=== PATIENT | female | born 1975 | race American Indian/Alaskan Native ===

== ENCOUNTER 2020-01-13 02:20 | Observation (INO) | payer BC, OTHER ==
[2020-01-13] MEDS ORDERED: SODIUM CHLORIDE 0.9% 1000 ML 1,000 ML IV ONE ×2 (02:34→05:27)
--- NOTE | 2020-01-13 02:46 | Emergency Department Report ---
HPI - General Chief Complaint: Dyspnea/Respdistress Time Seen by Provider: 01/13/20 02:26 - HPI HPI: Room 18 The patient is a 44-year-old female present with a chief complaint of nausea and vomiting. The patient states last week she was diagnosed with a "stomach flu" in the emergency department. Approximately 7 days ago she developed shortness of breath and went to see her primary physician who diagnosed her with pneumonia after performing a chest x-ray. The patient states she was given a shot of antibiotics in the office and given a prescription for doxycycline which she has been taking. Patient states today she developed intractable nausea vomiting and body aches. Patient admits to subjective fever. Patient states she felt weak. Patient denies diarrhea. Patient admits to a cough for 1 day and rhinorrhea for 1 day. Patient currently denies shortness of breath. Patient denies dysuria or hematuria Location: [See above] Duration: [See above] Quality: [See above] Severity: [See above] Timing: [See above] Context: [See above] Modifying factors: [See above] Associated signs and symptoms: [see above] Mode of Transportation: [the pt is not driving] ED Past Medical Hx - Past Medical History Previous Medical History?: Yes Hx Hypertension: Yes Hx Diabetes: Yes Hx Asthma: Yes Additional medical history: enlarged fibroids, anemia - Surgical History Past Surgical History?: Yes Additional Surgical History: cauterized uterus - Family History Family history: no significant - Social History Smoking Status: Never Smoker Substance Use Type: None (Denies illicit drug use), Alcohol (Rarely) - Medications Home Medications: Home Medications Medication Instructions Recorded Confirmed Last Taken Type hydroCHLOROthiazide [HCTZ] 10 mg PO DAILY 12/02/14 12/02/14 12/02/14 History metFORMIN [Glucophage] 500 mg PO BID 12/02/14 12/02/14 12/02/14 History Aspirin [Aspirin BABY CHEW TAB] 81 mg PO QDAY #30 tab.chew 12/04/14 Unknown Rx Insulin Glargine [Lantus VIAL] 10 units SUB-Q QHS #3 units 12/04/14 Unknown Rx Insulin Glulisine [Apidra] 3 units SUB-Q ACHS #2 units 12/04/14 Unknown Rx Metoprolol [Lopressor TAB] 12.5 mg PO BID #60 tablet 12/04/14 Unknown Rx Rosuvastatin (Nf) [Crestor] 20 mg PO QHS #30 tablet 12/04/14 Unknown Rx lisinopriL [Zestril TAB] 10 mg PO QDAY #30 tablet 12/04/14 Unknown Rx ED Review of Systems ROS: Stated complaint: PNEUMONIA Other details as noted in HPI Constitutional: no symptoms reported Eyes: denies: eye pain ENT: denies: throat pain Respiratory: cough, shortness of breath Cardiovascular: denies: chest pain Endocrine: no symptoms reported Gastrointestinal: nausea, vomiting Genitourinary: denies: dysuria Musculoskeletal: myalgia Neurological: denies: headache Physical Exam - Physical Exam Vital Signs: Vital Signs 01/13/20 02:26 Temperature 98.8 F Pulse Rate 119 H Respiratory 21 Rate Blood Pressure 122/76 [right arm] O2 Sat by Pulse 95 Oximetry Physical Exam: GENERAL: The patient is well-developed well-nourished female lying on stretcher not appearing to be in acute distress. [] HEENT: Normocephalic. Atraumatic. Extraocular motions are intact. Patient has moist mucous membranes. NECK: Supple. Trachea midline CHEST/LUNGS: Clear to auscultation. There is no respiratory distress noted. HEART/CARDIOVASCULAR: Regular. There is no tachycardia. There is no gallop rub or murmur. ABDOMEN: Abdomen is soft, with trace discomfort to the right abdomen but no rebound or guarding. Patient has normal bowel sounds. There is no abdominal distention. SKIN: There is no rash. There is no edema. There is no diaphoresis. NEURO: The patient is awake, alert, and oriented. The patient is cooperative. The patient has normal speech MUSCULOSKELETAL: There is no evidence of acute injury. ED Course Vital Signs 01/13/20 02:26 Temperature 98.8 F Pulse Rate 119 H Respiratory 21 Rate Blood Pressure 122/76 [right arm] O2 Sat by Pulse 95 Oximetry - Consultations Consultation #1: 01/13/20 05:31 [facility] called 01/13/20 05:[address] Villareal to admit patient [facility] ED Medical Decision Making - Lab Data Result diagrams: 01/13/20 03:47 01/13/20 03:47 - Radiology Data Radiology results: report reviewed (Chest x-ray, CT chest), image reviewed (Chest x-ray, CT chest) interpreted by : Chest x-ray-no focal infiltrates, no pneumothorax Report Status: Finalized [address] [address] XRay Report Signed Patient: JET RICHARDS MR#: [id number] : 1975 Acct:[id number] Age/Sex: 44 / F ADM Date: 01/13/20 Loc: ED Attending Dr: Ordering Physician: CINDI MOORE MD Date of Service: 01/13/20 Procedure(s): XR chest routine 2V Accession Number(s): [id number] cc: CINDI MOORE MD Fluoro Time In Minutes: CHEST 2 VIEWS INDICATION / CLINICAL INFORMATION: Cough. COMPARISON: None available. FINDINGS: SUPPORT DEVICES: None. HEART / MEDIASTINUM: No significant abnormality. LUNGS / PLEURA: There are low lung volumes bilaterally. No focal infiltrate is seen.. .No pneumothorax. ADDITIONAL FINDINGS: There is mild elevation right hemidiaphragm. IMPRESSION: 1. No acute findings. Signer Name: Amor Gordon MD Signed: 01/13/2020 3:26 AM Workstation Name: [id number] Transcribed By: SS Dictated By: Amor Gordon MD Electronically Authenticated By: Amor Gordon MD Signed Date/Time: 01/13/20325 DD/ 1 TD/TT: Findings [address] [address] Cat Scan Report Signed with Addenda Patient: EDDIE HEATH MR#: [id number] : 10/20/1974 Acct:[id number] Age/Sex: 45 / M ADM Date: 01/13/20 Loc: ED Attending Dr: Ordering Physician: CINDI MOORE MD Date of Service: 01/13/20 Procedure(s): CT head/brain wo con Accession Number(s): [id number] cc: CINDI MOORE MD ADDENDUM Addendum: CRITICAL RESULT: Dr. Gordon called this report to Dr. Moore at time 0408 hours central time. Report was confirmed. Signer Name: Amor Gordon MD Signed: 01/13/2020 5:09 AM Workstation Name: [id number] Addendum Transcribed By: Addendum Dictated By: Amor Gordon MD Addendum Electronically Authenticated By: Amor Gordon MD Addendum Signed Date/Time: 01/13/20508 DD/ TD/TT: / CT HEAD WITHOUT CONTRAST INDICATION: Traumatic head injury. Mechanism unknown TECHNIQUE: Axial slices were obtained through the head. Coronal and sagittal reformatted images were obtained. COMPARISON: None available. FINDINGS: There is a small focal punctate hemorrhage in the right basal ganglia. This measures approximately 2 mm. there is no significant mass effect. No subdural or epidural or subarachnoid hemorrhage. Ventricles, basilar cisterns, and sulci appear within normal limits for age. There is no mass lesion or midline shift. No acute territorial infarct is identified. Bone windows demonstrate no acute osseous abnormality. Paranasal sinuses and mastoid air cells appear clear. TECHNIQUE: All CT scans at this facility use dose modulation, iterative reconstruction, automated exposure control, weight based dosing, when appropriate, to reduce radiation dose to as low as reasonably achievable. IMPRESSION: 1. There is a very small hemorrhagic contusion in the right basal ganglia, series 2 image 17. There is no mass effect or midline shift. Signer Name: Amor Gordon MD Signed: 01/13/2020 5:04 AM Workstation Name: [id number] Transcribed By: Dictated By: Amor Gordon MD Electronically Authenticated By: Amor Gordon MD Signed Date/Time: 01/13/20503 DD/ 9 TD/TT: [facility] [address] [place] [address] Cat Scan Report Signed Patient: JET RICHARDS MR#: [id number] : 1975 Acct:[id number] Age/Sex: 44 / F ADM Date: 01/13/20 Loc: ED Attending Dr: Ordering Physician: CINDI MOORE MD Date of Service: 01/13/20 Procedure(s): CT abdomen pelvis w con Accession Number(s): [id number] cc: CINDI MOORE MD CT abdomen pelvis w con INDICATION: MAIN: Cough, intractable nausea vomiting, leukocytosis. 100 ML OMNIPAQUE 300. TECHNIQUE: All CT scans at this location are performed using the following dose modulation technique: Automated exposure control. Helical slices were obtained through the abdomen and pelvis. 100 cc of Omnipaque 300 is administered. COMPARISON: None available. FINDINGS: Abdomen: The liver, spleen, pancreas, adrenal glands, and kidneys show no acute abnormality. There is no bowel obstruction, inflammation, or free air. The appendix is unremarkable. Pelvis: The uterus is enlarged and contains multiple masses characteristic of an enlarged leiomyomatous uterus. The uterus measures approximately 16 x 13.5 x 13.5 cm. Several of the lesions in the uterus or low in attenuation and irregular which could indicate degeneration or infarction of the fibroid. There is no air within any of these lesions to suggest infection. There is no adenopathy. There is no inflammatory change. Phleboliths are noted in the pelvis. On review of bone windows, no acute osseous abnormalities are seen. IMPRESSION: 1. There is an enlarged fibroid uterus. No inflammatory changes seen. Signer Name: Amor Gordon MD Signed: 01/13/2020 5:37 AM Workstation Name: [id number] Transcribed By: SS Dictated By: Amor Gordon MD Electronically Authenticated By: Amor Gordon MD Signed Date/Time: 01/13/20536 DD/ 0 TD/TT: - Differential Diagnosis Pneumonia, gastroenteritis, Critical care attestation.: If time is entered above; I have spent that time in minutes in the direct care of this critically ill patient, excluding procedure time. ED Disposition Clinical Impression: Nausea & vomiting, Leukocytosis, Tachycardia Disposition: OP ADMIT IP TO THIS HOSP Is pt being admited?: Yes Does the pt Need Aspirin: No Condition: Fair Referrals: PRIMARY CARE, [Primary Care Provider] - 3-5 Days Time of Disposition: 05:46 (Hospitalist paged (Dr Robin))
--- NOTE | 2020-01-13 03:30 | XRay Report ---
CHEST 2 VIEWS INDICATION / CLINICAL INFORMATION: Cough. COMPARISON: None available. FINDINGS: SUPPORT DEVICES: None. HEART / MEDIASTINUM: No significant abnormality. LUNGS / PLEURA: There are low lung volumes bilaterally. No focal infiltrate is seen.. .No pneumothora x. ADDITIONAL FINDINGS: There is mild elevation right hemidiaphragm. IMPRESSION: 1. No acute findings. Signer Name: Amor Gordon MD Signed: 01/13/2020 3:26 AM Workstation Name: [email or web address]
[2020-01-13 04:05] LABS: ABG Base Excess 3.3 mmol/L (-2.0-3.0); ABG HCO3 26.5 mmol/L (20.0-26.0); ABG Methemoglobin 0.7 % (0.0-1.5); ABG PCO2 35.7 mm Hg; ABG PH 7.488 pH Units (7.350-7.450); ABG PO2 74.3 mm Hg (80.0-90.0); VEN PH 7.488 (7.320-7.420)
[2020-01-13 04:07] LABS: Hematocrit 32.4 % (30.3-42.9); Hemoglobin 10.8 gm/dl (10.1-14.3); Mean Corpuscular HGB Conc 34 % (30-34); Mean Corpuscular Volume 88 fl (79-97); Platelet Count 520 K/mm3 (140-440); Red Blood Count 3.69 M/mm3 (3.65-5.03); Red Cell Distribution Width 15.1 % (13.2-15.2)
[2020-01-13 04:21] LABS: Alanine Aminotransferase 11 units/L (7-56); Albumin 3.1 g/dL (3.9-5); BUN/Creatinine Ratio 10; Blood Urea Nitrogen 6 mg/dL (7-17); Calcium 9.3 mg/dL (8.4-10.2); Hemolysis Index 1
[2020-01-13 05:11] LABS: Basophils % (Manual) 0 % (0.0-1.8); Eosinophils % (Manual) 0 % (0.0-4.3)
[2020-01-13 05:13] LABS: Anisocytosis 1+; Platelet Estimate Consistent w Auto; Total Cells Counted 200
[2020-01-13] MEDS ORDERED: PIPERACIL/TAZOBACTA 4.5/NS 100 4.5 GM/100 ML VIAL IV ONE (05:27)
--- NOTE | 2020-01-13 05:36 | Cat Scan Report ---
CT chest w con INDICATION: Cough, intractable nausea vomiting, leukocytosis. TECHNIQUE: All CT scans at this location are performed using the following dose modulation technique: Automated exposure control. Helical slices were obtained through the chest. 100 cc of Omnipaque 300 is administ ered. COMPARISON: None available. FINDINGS: There is mild dependent atelectasis in the lung bases. No significant infiltrate is seen. There is no pneumothorax. Review of the mediastinum there is no adenopathy. The heart size is normal. The thoracic aorta is nor mal in diameter. There is a small hiatal hernia. On review of bone windows, no acute osseous abnormalities are seen. IMPRESSION: 1. There is mild dependent atelectasis. No significant infiltrate is seen. There is no pneumothorax. Signer Name: Amor Gordon MD Signed: 01/13/2020 5:31 AM Workstation Name: [id number]
--- NOTE | 2020-01-13 05:42 | Cat Scan Report ---
CT abdomen pelvis w con INDICATION: MAIN: Cough, intractable nausea vomiting, leukocytosis. 100 ML OMNIPAQUE 300. TECHNIQUE: All CT scans at this location are performed using the following dose modulation technique: Automated exposure control. Helical slices were obtained through the abdomen and pelvis. 100 cc of Omnipaque 30 0 is administered. COMPARISON: None available. FINDINGS: Abdomen: The liver, spleen, pancreas, adrenal glands, and kidneys show no acute abnormality. There is no bowel obstruction, inflammation, or free air. The appendix is unremarkable. Pelvis: The uterus is enlarged and contains multiple masses characteristic of an enlarged leiomyomato us uterus. The uterus measures approximately 16 x 13.5 x 13.5 cm. Several of the lesions in the uteru s or low in attenuation and irregular which could indicate degeneration or infarction of the fibroid. There is no air within any of these lesions to suggest infection. There is no adenopathy. There is n o inflammatory change. Phleboliths are noted in the pelvis. On review of bone windows, no acute osseous abnormalities are seen. IMPRESSION: 1. There is an enlarged fibroid uterus. No inflammatory changes seen. Signer Name: Amor Gordon MD Signed: 01/13/2020 5:37 AM Workstation Name: [id number]
--- NOTE | 2020-01-13 05:59 | History and Physical Report ---
History of Present Illness Date of examination: 01/13/20 Date of admission: 01/13/20 Chief complaint: Nausea, vomiting History of present illness: Patient is a 44-year-old female with diabetes, anemia, hypertension and obesity who presents to ER with complaints of nausea and vomiting since last p.m. patient reports she is currently taking doxycycline and Zofran after being diagnosed with pneumonia by her her PCP last week. She reports compliance with medication and states vomiting has been persistent with Zofran. Patient states worsening symptoms over the last couple hours accompanied by fevers and chills Patient transported to [facility] via EMS. Patient seen and evaluated in the emergency department. Patient found to have leukocytosis as well as concomitant abdominal pain. Patient placed in observation status and admitted for further evaluation. Past History Past Medical History: other (as noted in hpi) Past Surgical History: Other (Fibroids, polyps) Social history: no significant social history Family history: CAD, diabetes Medications and Allergies Allergies Allergy/AdvReac Type Severity Reaction Status Date / Time No Known Allergies Allergy Verified 12/03/14 00:56 Home Medications Medication Instructions Recorded Confirmed Last Taken Type hydroCHLOROthiazide [HCTZ] 10 mg PO DAILY 12/02/14 12/02/14 12/02/14 History metFORMIN [Glucophage] 500 mg PO BID 12/02/14 12/02/14 12/02/14 History Aspirin [Aspirin BABY CHEW TAB] 81 mg PO QDAY #30 tab.chew 12/04/14 Unknown Rx Insulin Glargine [Lantus VIAL] 10 units SUB-Q QHS #3 units 12/04/14 Unknown Rx Insulin Glulisine [Apidra] 3 units SUB-Q ACHS #2 units 12/04/14 Unknown Rx Metoprolol [Lopressor TAB] 12.5 mg PO BID #60 tablet 12/04/14 Unknown Rx Rosuvastatin (Nf) [Crestor] 20 mg PO QHS #30 tablet 12/04/14 Unknown Rx lisinopriL [Zestril TAB] 10 mg PO QDAY #30 tablet 12/04/14 Unknown Rx Active Meds: Active Medications Sodium Chloride (Nacl 0.9% 1000 Ml) 1,000 mls @ 999 mls/hr IV ONCE ONE Stop: 01/13/20 06:27 Last Admin: 01/13/20 05:50 Dose: 999 mls/hr Documented by: Review of Systems All systems: negative Constitutional: fever, chills, weakness Respiratory: respiratory infections Gastrointestinal: nausea, vomiting, no abdominal pain, no diarrhea, no constipation Exam - Physical Exam Narrative exam: - Physical Exam Narrative exam: General appearance: Present: No distress noted - EENT Eyes: Present: PERRL ENT: hearing intact, dry oral mucosa - Neck Neck: Present: supple, normal ROM - Respiratory Respiratory effort: normal Respiratory: bilateral: Clear to auscultation - Cardiovascular Heart rate:109 Heart Sounds: Present: S1 & S2. Absent: rub, click - Extremities Extremities: pulses symmetrical, No edema Peripheral Pulses: within normal limits - Abdominal General gastrointestinal: Present: , non-distended, normal bowel sounds genitourinary: Present: normal - Integumentary Integumentary: Present: clear, warm, dry - Musculoskeletal Musculoskeletal: gait normal, strength equal bilaterally - Psychiatric Psychiatric: appropriate mood/affect, intact judgment & insight - Neurologic Neurologic: CNII-XII intact, moves all extremities - Constitutional Vitals: Temp Pulse Resp BP Pulse Ox 98.8 F 57 L 38 H 113/68 97 01/13/20 02:26 01/13/20 04:30 01/13/20 04:30 01/13/20 04:30 01/13/20 04:30 ADDISON score - Addison Score Age > 65: (0) No Aspirin use within the Past 7 Days: (0) No 3 or more CAD Risk Factors: (1) Yes 2 or more Angina events in past 24 hrs: (1) Yes Known CAD with more than 50% Stenosis: (0) No Elevated Cardiac Markers: (0) No ST Deviation Greater than 0.5mm: (0) No ADDISON Score: 2 Results - Labs CBC & Chem 7: 01/13/20 03:47 01/13/20 03:47 Labs: Laboratory Last Values WBC 25.1 K/mm3 (4.5-11.0) H 01/13/20 03:47 RBC 3.69 M/mm3 (3.65-5.03) 01/13/20 03:47 Hgb 10.8 gm/dl (10.1-14.3) 01/13/20 03:47 Hct 32.4 % (30.3-42.9) 01/13/20 03:47 MCV 88 fl (79-97) 01/13/20 03:47 MCH 29 pg (28-32) 01/13/20 03:47 MCHC 34 % (30-34) 01/13/20 03:47 RDW 15.1 % (13.2-15.2) 01/13/20 03:47 Plt Count 520 K/mm3 (140-440) H 01/13/20 03:47 Add Manual Diff Complete 01/13/20 03:47 Total Counted 200 01/13/20 03:47 Seg Neutrophils % [employer] 01/13/20 03:47 Seg Neuts % (Manual) 94.0 % (40.0-70.0) H 01/13/20 03:47 Band Neutrophils % 0 % 01/13/20 03:47 Lymphocytes % (Manual) 4.0 % (13.4-35.0) L 01/13/20 03:47 Reactive Lymphs % (Man) 0 % 01/13/20 03:47 Monocytes % (Manual) 2.0 % (0.0-7.3) 01/13/20 03:47 Eosinophils % (Manual) 0 % (0.0-4.3) 01/13/20 03:47 Basophils % (Manual) 0 % (0.0-1.8) 01/13/20 03:47 Metamyelocytes % 0 % 01/13/20 03:47 Myelocytes % 0 % 01/13/20 03:47 Promyelocytes % 0 % 01/13/20 03:47 Blast Cells % 0 % 01/13/20 03:47 Nucleated RBC % Not Reportable 01/13/20 03:47 Seg Neutrophils # Man 23.6 K/mm3 (1.8-7.7) H 01/13/20 03:47 Band Neutrophils # 0.0 K/mm3 01/13/20 03:47 Lymphocytes # (Manual) 1.0 K/mm3 (1.2-5.4) L 01/13/20 03:47 Abs React Lymphs (Man) 0.0 K/mm3 01/13/20 03:47 Monocytes # (Manual) 0.5 K/mm3 (0.0-0.8) 01/13/20 03:47 Eosinophils # (Manual) 0.0 K/mm3 (0.0-0.4) 01/13/20 03:47 Basophils # (Manual) 0.0 K/mm3 (0.0-0.1) 01/13/20 03:47 Metamyelocytes # 0.0 K/mm3 01/13/20 03:47 Myelocytes # 0.0 K/mm3 01/13/20 03:47 Promyelocytes # 0.0 K/mm3 01/13/20 03:47 Blast Cells # 0.0 K/mm3 01/13/20 03:47 WBC Morphology Not Reportable 01/13/20 03:47 Hypersegmented Neuts Not Reportable 01/13/20 03:47 Hyposegmented Neuts Not Reportable 01/13/20 03:47 Hypogranular Neuts Not Reportable 01/13/20 03:47 Smudge Cells Not Reportable 01/13/20 03:47 Toxic Granulation Not Reportable 01/13/20 03:47 Toxic Vacuolation Not Reportable 01/13/20 03:47 Dohle Bodies Not Reportable 01/13/20 03:47 Pelger-Huet Anomaly Not Reportable 01/13/20 03:47 Rolando Rods Not Reportable 01/13/20 03:47 Platelet Estimate Consistent w auto 01/13/20 03:47 Clumped Platelets Not Reportable 01/13/20 03:47 Plt Clumps, EDTA Not Reportable 01/13/20 03:47 Large Platelets Not Reportable 01/13/20 03:47 Giant Platelets Not Reportable 01/13/20 03:47 Platelet Satelliting Not Reportable 01/13/20 03:47 Plt Morphology Comment Not Reportable 01/13/20 03:47 RBC Morphology Not Reportable 01/13/20 03:47 Dimorphic RBCs Not Reportable 01/13/20 03:47 Polychromasia Not Reportable 01/13/20 03:47 Hypochromasia Not Reportable 01/13/20 03:47 Poikilocytosis Not Reportable 01/13/20 03:47 Anisocytosis 1+ 01/13/20 03:47 Microcytosis Not Reportable 01/13/20 03:47 Macrocytosis Not Reportable 01/13/20 03:47 Spherocytes Not Reportable 01/13/20 03:47 Pappenheimer Bodies Not Reportable 01/13/20 03:47 Sickle Cells Not Reportable 01/13/20 03:47 Target Cells Not Reportable 01/13/20 03:47 Tear Drop Cells Not Reportable 01/13/20 03:47 Ovalocytes Not Reportable 01/13/20 03:47 Helmet Cells Not Reportable 01/13/20 03:47 [place] Bodies Not Reportable 01/13/20 03:47 [place] Rings Not Reportable 01/13/20 03:47 Kirt Cells Not Reportable 01/13/20 03:47 Bite Cells Not Reportable 01/13/20 03:47 Crenated Cell Not Reportable 01/13/20 03:47 Elliptocytes Not Reportable 01/13/20 03:47 Acanthocytes (Spur) Not Reportable 01/13/20 03:47 Rouleaux Not Reportable 01/13/20 03:47 Hemoglobin C Crystals Not Reportable 01/13/20 03:47 Schistocytes Not Reportable 01/13/20 03:47 Malaria parasites Not Reportable 01/13/20 03:47 Hernando Bodies Not Reportable 01/13/20 03:47 Hem Pathologist Commnt No 01/13/20 03:47 ABG pH 7.488 pH Units (7.350-7.450) H 01/13/20 03:47 ABG pCO2 35.7 mm Hg 01/13/20 03:47 ABG pO2 74.3 mm Hg (80.0-90.0) L 01/13/20 03:47 ABG HCO3 26.5 mmol/L (20.0-26.0) H 01/13/20 03:47 ABG O2 Saturation 96.0 % (95.0-99.0) 01/13/20 03:47 ABG O2 Content 17.1 (0.0-44) 01/13/20 03:47 ABG Base Excess 3.3 mmol/L (-2.0-3.0) H 01/13/20 03:47 ABG Hemoglobin 12.9 gm/dl (12.0-16.0) 01/13/20 03:47 ABG Carboxyhemoglobin 1.4 % (0.0-5.0) 01/13/20 03:47 ABG Methemoglobin 0.7 % (0.0-1.5) 01/13/20 03:47 VBG pH 7.488 (7.320-7.420) H 01/13/20 03:47 Oxyhemoglobin 94.0 % (95.0-99.0) L 01/13/20 03:47 FiO2 21 % 01/13/20 03:47 Sodium 137 mmol/L (137-145) 01/13/20 03:47 Potassium 3.2 mmol/L (3.6-5.0) L 01/13/20 03:47 Chloride 95.6 mmol/L (98-107) L 01/13/20 03:47 Carbon Dioxide 26 mmol/L (22-30) 01/13/20 03:47 Anion Gap 19 mmol/L 01/13/20 03:47 BUN 6 mg/dL (7-17) L 01/13/20 03:47 Creatinine 0.6 mg/dL (0.7-1.2) L 01/13/20 03:47 Estimated GFR > 60 ml/min 01/13/20 03:47 BUN/Creatinine Ratio 10 % 01/13/20 03:47 Glucose 244 mg/dL (65-100) H 01/13/20 03:47 Calcium 9.3 mg/dL (8.4-10.2) 01/13/20 03:47 Total Bilirubin 0.40 mg/dL (0.1-1.2) 01/13/20 03:47 AST 12 units/L (5-40) 01/13/20 03:47 ALT 11 units/L (7-56) 01/13/20 03:47 Alkaline Phosphatase 91 units/L (35-129) 01/13/20 03:47 Total Protein 5.9 g/dL (6.3-8.2) L 01/13/20 03:47 Albumin 3.1 g/dL (3.9-5) L 01/13/20 03:47 Albumin/Globulin Ratio 1.1 % 01/13/20 03:47 Lipase 9 units/L (13-60) L 01/13/20 03:47 Influenza A (Rapid) Negative (Negative) 01/13/20 02:45 Influenza B (Rapid) Negative (Negative) 01/13/20 02:45 - Imaging and Cardiology Chest x-ray: report reviewed CT scan - abdomen: report reviewed CT scan - chest: report reviewed Imaging and Cardiology: CT chest w con INDICATION: Cough, intractable nausea vomiting, leukocytosis. TECHNIQUE: All CT scans at this location are performed using the following dose modulation technique: Automated exposure control. Helical slices were obtained through the chest. 100 cc of Omnipaque 300 is administered. COMPARISON: None available. FINDINGS: There is mild dependent atelectasis in the lung bases. No significant infiltrate is seen. There is no pneumothorax. Review of the mediastinum there is no adenopathy. The heart size is normal. The thoracic aorta is normal in diameter. There is a small hiatal hernia. On review of bone windows, no acute osseous abnormalities are seen. IMPRESSION: 1. There is mild dependent atelectasis. No significant infiltrate is seen. There is no pneumothorax. CHEST 2 VIEWS INDICATION / CLINICAL INFORMATION: Cough. COMPARISON: None available. FINDINGS: SUPPORT DEVICES: None. HEART / MEDIASTINUM: No significant abnormality. LUNGS / PLEURA: There are low lung volumes bilaterally. No focal infiltrate is seen.. .No pneumothorax. ADDITIONAL FINDINGS: There is mild elevation right hemidiaphragm. IMPRESSION: 1. No acute findings. CT abdomen pelvis w con INDICATION: MAIN: Cough, intractable nausea vomiting, leukocytosis. 100 ML OMNIPAQUE 300. TECHNIQUE: All CT scans at this location are performed using the following dose modulation technique: Automated exposure control. Helical slices were obtained through the abdomen and pelvis. 100 cc of Omnipaque 300 is administered. COMPARISON: None available. FINDINGS: Abdomen: The liver, spleen, pancreas, adrenal glands, and kidneys show no acute abnormality. There is no bowel obstruction, inflammation, or free air. The appendix is unremarkable. Pelvis: The uterus is enlarged and contains multiple masses characteristic of an enlarged leiomyomatous uterus. The uterus measures approximately 16 x 13.5 x 13.5 cm. Several of the lesions in the uterus or low in attenuation and irregular which could indicate degeneration or in farction of the fibroid. There is no air within any of these lesions to suggest infection. There is no adenopathy. There is no inflammatory change. Phleboliths are noted in the pelvis. On review of bone windows, no acute osseous abnormalities are seen. IMPRESSION: 1. There is an enlarged fibroid uterus. No inflammatory changes seen. Assessment and Plan Assessment and plan: SIRS -CXR no infiltrates -Tachycardic with heart rate 120 bpm -Respiratory rate >30 -Blood cultures pending -Negative Rapid influenza A and influenza B -Follow up on labs -Continue supportive care Leukocytosis -Likely inflammatory response, denies recent systemic steroid use -WBC on admission 25 -Afebrile -Cultures pending -UA pending -Antibiotic started in the ER -Continue to monitor labs Intractable nausea vomiting -ivf -cont antiemetics Tachycardia -possibly r/t above -Monitor DM -POC BG monitoring -SSI coverage prn Advance Directives: No VTE prophylaxis?: Mechanical Plan of care discussed with patient/family: Yes
[2020-01-13] MEDS ORDERED: DEXTROSE 50% IN WATER (25GM) 50 ML SYRINGE IV PRN (06:00)
[2020-01-13] MEDS ORDERED: ONDANSETRON 4 MG/2 ML INJ IV PRN (06:00)
[2020-01-13] MEDS ORDERED: ACETAMINOPHEN 325 MG TAB PO PRN (06:00)
[2020-01-13] MEDS: INSULIN LISPRO 100 UNIT/ML SUB-Q SCH ×4 (09:05→22:21)
[2020-01-13] MEDS ORDERED: INSULIN LISPRO 100 UNIT/ML SUB-Q ONE (09:05)
[2020-01-13] MEDS: FAMOTIDINE 20 MG/2 ML INJ IV SCH ×2 (10:06→22:20)
[2020-01-13] MEDS ORDERED: PIPERACIL/TAZOBACTA 4.5/NS 100 4.5 GM/100 ML VIAL IV SCH (14:00)
--- NOTE | 2020-01-13 17:04 | Consultation ---
History of Present Illness Consult date: 01/13/20 Requesting physician: HENRY LANCE Reason for consult: dyspnea History of present illness: Patient is a 44-year-old female with diabetes, anemia, hypertension and obesity who presents to ER with complaints of nausea and vomiting since last p.m. patient reports she is currently taking doxycycline and Zofran after being diagnosed with pneumonia by her her PCP last week. She reports compliance with medication and states vomiting has been persistent with Zofran. Patient states worsening symptoms over the last couple hours accompanied by fevers and chills Patient transported to [facility] via EMS. Patient seen and evaluated in the emergency department. Patient found to have leukocytosis as well as concomitant abdominal pain. Patient placed in observation status and admitted for further evaluation. I have been consulted for dyspnea and pneumonia Thank you. Patient was seen and examined. Vitals, labs, medications, chart and imaging were reviewed. She states that she is short of breath and was on a 10 day course of doxycycline for pneumonia. The diagnosis of pneumonia was clinical without supporting radi ographic findings. She does have a history of mild intermittent asthma. She is resting in bed, states her nausea is slowly getting better. She is on 2L of regular flow oxygen and in no respiratory distress. Past History Past Medical History: other (as noted in hpi) Past Surgical History: Other (Fibroids, polyps) Social history: no significant social history Family history: CAD, diabetes Medications and Allergies Allergies Allergy/AdvReac Type Severity Reaction Status Date / Time No Known Allergies Allergy Verified 12/03/14 00:56 Home Medications Medication Instructions Recorded Confirmed Last Taken Type hydroCHLOROthiazide [HCTZ] 12.5 mg PO DAILY 12/02/14 01/13/20 01/12/20 History metFORMIN [Glucophage] 1,000 mg PO BID 12/02/14 01/13/20 01/12/20 History Albuterol INH(or & Nicu Only) 1 puff IH Q4HR PRN 01/13/20 01/13/20 Unknown History [ProAir HFA Inhaler] Insulin Glargine [Lantus VIAL] 45 units SUB-Q QHS 01/13/20 01/13/20 01/13/20 History Loratadine [Alavert] 10 mg PO QDAY 01/13/20 01/13/20 Unknown History Metoprolol [Lopressor TAB] 100 mg PO QDAY 01/13/20 01/13/20 01/12/20 History Montelukast [Singulair] 10 mg PO QPM 01/13/20 01/13/20 01/12/20 History glipiZIDE [Glucotrol] 10 mg PO QDAY 01/13/20 01/13/20 01/12/20 History Active Meds: Active Medications Acetaminophen (Tylenol) 650 mg PO Q4H PRN PRN Reason: Pain MILD(1-3)/Fever >100.5/RYAN Dextrose (D50w (25gm) Syringe) 50 ml IV Q30MIN PRN; Protocol PRN Reason: Hypoglycemia Famotidine (Pepcid) 20 mg IV BID JASPREET Last Admin: 01/13/20 10:06 Dose: 20 mg Documented by: Sodium Chloride (Nacl 0.9% 1000 Ml) 1,000 mls @ 125 mls/hr IV DIRECT JASPREET Insulin Human Lispro (Humalog) 0 unit SUB-Q ACHS JASPREET; Protocol Last Admin: 01/13/20 13:03 Dose: Not Given Documented by: Ondansetron HCl (Zofran) 4 mg IV Q8H PRN PRN Reason: Nausea And Vomiting Review of Systems Constitutional: chills, no weight loss, no weight gain, no fever Ears, nose, mouth and throat: no ear pain, no ear discharge, no decreased hearing, no nasal congestion, no nasal discharge Cardiovascular: shortness of breath, no chest pain, no dyspnea on exertion, no paroxysmal nocturnal dyspnea, no leg edema Respiratory: cough, shortness of breath, congestion, no excessive sputum, no hemoptysis, no wheezing Gastrointestinal: abdominal pain, nausea, vomiting, no diarrhea, no constipation, no change in bowel habits Musculoskeletal: no neck stiffness, no neck pain, no shooting arm pain, no arm numbness/tingling Neurological: no transient paralysis, no parathesias, no seizures, no syncope, no tremors, no ataxia, no lack of coordination Physical Examination Vital signs: Vital Signs Temp Pulse Resp BP Pulse Ox 98.8 F 119 H 21 122/76 95 01/13/20 02:26 01/13/20 02:26 01/13/20 02:26 01/13/20 02:26 01/13/20 02:26 General appearance: no acute distress, appears uncomfortable, other (on suppleme ntal oxygen at 2L/min) Eyes: non-icteric ENT: oropharynx moist Neck: supple, no lymphadenopathy, no JVD Effort: normal Ascultation: Bilateral: diminished breath sounds, rhonchi Cardiovascular: regular rate and rhythm, other (S1,S2) Gastrointestinal: normoactive bowel sounds, soft, non-tender Integumentary: normal Extremities: no cyanosis, no edema, pink and warm, no ischemia or petechiae Musculoskeletal: no deformities normal mental status, non-focal exam, pupils equal and round, CN II-XII normal, motor strength normal and mood appropriate, anxious Results - Laboratory Findings CBC and BMP: 01/14/20 05:39 01/14/20 05:39 ABG ABG pH 7.488 pH Units (7.350-7.450) H 01/13/20 03:47 ABG pCO2 35.7 mm Hg 01/13/20 03:47 ABG pO2 74.3 mm Hg (80.0-90.0) L 01/13/20 03:47 ABG O2 Saturation 96.0 % (95.0-99.0) 01/13/20 03:47 Abnormal lab findings: Abnormal Labs 01/13/20 01/13/20 01/13/20 03:47 03:47 03:47 WBC 25.1 H Plt Count 520 H Seg Neuts % (Manual) 94.0 H Lymphocytes % (Manual) 4.0 L Seg Neutrophils # Man 23.6 H Lymphocytes # (Manual) 1.0 L ABG pH 7.488 H ABG pO2 74.3 L ABG HCO3 26.5 H ABG Base Excess 3.3 H VBG pH 7.488 H Oxyhemoglobin 94.0 L Potassium 3.2 L Chloride 95.6 L BUN 6 L Creatinine 0.6 L Glucose 244 H POC Glucose Total Protein 5.9 L Albumin 3.1 L Lipase 9 L 01/13/20 01/13/20 08:56 12:09 WBC Plt Count Seg Neuts % (Manual) Lymphocytes % (Manual) Seg Neutrophils # Man Lymphocytes # (Manual) ABG pH ABG pO2 ABG HCO3 ABG Base Excess VBG pH Oxyhemoglobin Potassium Chloride BUN Creatinine Glucose POC Glucose 225 H 164 H Total Protein Albumin Lipase - Diagnostic Findings Chest x-ray: image reviewed (Low lung volumes, elevation of right hemidiaphragm) CT scan - chest: image reviewed (Bilateral lower lobe atelectasis, mild) Assessment and Plan Dyspnea Bilateral lower lobe atelectasis h/o Mild intermittent asthma SIRS-Leukocytosis Nausea -vomiting Tachycardia DM -Wean supplemental oxygen for O2 sats>90% -Bronchodilators -Her CT chest and CXR are unremarkable fro a primary pulmonary process. With the elevated right hemidiaphragm, with nausea/vomiting and abdominal pain in an obese woman will r/o acute cholecystitis. she did come in with leukocytosis and an acute inflammatory response picture -VTE prophylaxis -Gentle IV hydration -Accucheck with glycemic control -Anti-emetics with supportive care -Weight loss and life style modification on discharge -Airway clearance techniques- incentive spirometry Thank you for the consult. Please call with any questions or concerns
[2020-01-13] MEDS: SODIUM CHLORIDE 0.9% 1000 ML 1,000 ML IV SCH (17:42)
[2020-01-13] MEDS ORDERED: ALBUTEROL 8.5 GM INHALATION IH PRN (17:49)
[2020-01-13 18:58] LABS: HCG Qualitative,Urine Negative (Negative)
[2020-01-13 18:59] LABS: Bilirubin,Urine NEG (Negative); Blood,Urine MOD (Negative); Color,Urine Yellow (Yellow); Protein,Urine <15 mg/dL mg/dL (Negative); Urobilinogen,Urine < 2.0 mg/dL (<2.0)
[2020-01-13] MEDS: BUDESONIDE 0.5 MG/2 ML NEBU IH SCH (19:28)
[2020-01-13] MEDS: MONTELUKAST 10 MG TAB PO SCH (19:45)
[2020-01-13] MEDS ORDERED: INSULIN GLARGINE 100 UNITS/ML SUB-Q SCH (22:00)
[2020-01-13] MEDS: metFORMIN 500 MG TAB PO SCH (22:18)
[2020-01-13] MEDS: METOPROLOL TARTRATE 50 MG TAB PO SCH (22:19)
[2020-01-13] MEDS: INSULIN GLARGINE 100 UNITS/ML SUB-Q SCH (22:20)
[2020-01-14] MEDS: SODIUM CHLORIDE 0.9% 1000 ML 1,000 ML IV SCH ×2 (01:27→11:59)
[2020-01-14 07:03] LABS: Basophils % (Auto) 0.3 % (0.0-1.8); Eosinophils % (Auto) 0.2 % (0.0-4.3); Hemoglobin 10.2 gm/dl (10.1-14.3); Lymphocytes # (Auto) 1.6 K/mm3 (1.2-5.4); Lymphocytes % (Auto) 11.1 % (13.4-35.0); Mean Corpuscular HGB Conc 33 % (30-34); Mean Corpuscular Volume 89 fl (79-97); Monocytes # (Auto) 0.9 K/mm3 (0.0-0.8); Monocytes % (Auto) 6.6 % (0.0-7.3); Platelet Count 489 K/mm3 (140-440); Red Blood Count 3.48 M/mm3 (3.65-5.03); Red Cell Distribution Width 14.9 % (13.2-15.2)
[2020-01-14 07:09] LABS: BUN/Creatinine Ratio 8; Blood Urea Nitrogen 4 mg/dL (7-17); Calcium 8.6 mg/dL (8.4-10.2); Hemolysis Index 0
[2020-01-14] MEDS: BUDESONIDE 0.5 MG/2 ML NEBU IH SCH ×2 (07:24→20:44)
[2020-01-14] MEDS: ALBUTEROL 2.5 MG/3 ML NEBU IH PRN (07:24)
[2020-01-14] MEDS: INSULIN LISPRO 100 UNIT/ML SUB-Q SCH ×5 (07:30→22:11)
--- NOTE | 2020-01-14 08:21 | Progress Note ---
Assessment and Plan Dyspnea Bilateral lower lobe atelectasis h/o Mild intermittent asthma SIRS-Leukocytosis Nausea -vomiting Tachycardia DM -Wean supplemental oxygen for O2 sats>90% -Bronchodilators -Her CT chest and CXR are unremarkable fro a primary pulmonary process. With the elevated right hemidiaphragm, with nausea/vomiting and abdominal pain in an obese woman will r/o acute cholecystitis. she did come in with leukocytosis and an acute inflammatory response picture -VTE prophylaxis -Gentle IV hydration -Accucheck with glycemic control -Anti-emetics with supportive care -Weight loss and life style modification on discharge -Airway clearance techniques- incentive spirometry Thank you for the consult. Please call with any questions or concerns Subjective Date of service: 01/14/20 Objective Vital Signs - 12hr 01/13/20 01/13/20 01/14/20 22:19 23:42 03:48 Temperature 98.0 F Pulse Rate 109 H 99 H 100 H Respiratory 18 Rate Blood Pressure 127/80 105/64 O2 Sat by Pulse 96 Oximetry 01/14/20 04:27 Temperature 98.0 F Pulse Rate 100 H Respiratory 18 Rate Blood Pressure 106/59 O2 Sat by Pulse 97 Oximetry Constitutional: no acute distress, appears uncomfortable, other (on supplemental oxygen at 2L/min) Eyes: non-icteric ENT: oropharynx moist Neck: supple, no lymphadenopathy, no JVD Effort: normal Ascultation: Bilateral: diminished breath sounds, rhonchi Cardiovascular: regular rate and rhythm, other (S1,S2) Gastrointestinal: normoactive bowel sounds, soft, non-tender Integumentary: normal Extremities: no cyanosis, no edema, pink and warm, no ischemia or petechiae Neurologic: normal mental status, non-focal exam, pupils equal and round, CN II- XII normal, motor strength normal and Psychiatric: mood appropriate, anxious CBC and BMP: 01/14/20 05:39 01/14/20 05:39 ABG, PT/INR, D-dimer: ABG ABG pH 7.488 pH Units (7.350-7.450) H 01/13/20 03:47 ABG pCO2 35.7 mm Hg 01/13/20 03:47 ABG pO2 74.3 mm Hg (80.0-90.0) L 01/13/20 03:47 ABG O2 Saturation 96.0 % (95.0-99.0) 01/13/20 03:47 Abnormal lab findings: Abnormal Labs 01/13/20 01/13/20 01/13/20 03:47 03:47 03:47 WBC 25.1 H RBC Plt Count 520 H Lymph % (Auto) [place] # Seg Neutrophils % Seg Neuts % (Manual) 94.0 H Lymphocytes % (Manual) 4.0 L Seg Neutrophils # Seg Neutrophils # Man 23.6 H Lymphocytes # (Manual) 1.0 L ABG pH 7.488 H ABG pO2 74.3 L ABG HCO3 26.5 H ABG Base Excess 3.3 H VBG pH 7.488 H Oxyhemoglobin 94.0 L Potassium 3.2 L Chloride 95.6 L BUN 6 L Creatinine 0.6 L Glucose 244 H POC Glucose Phosphorus Magnesium Total Protein 5.9 L Albumin 3.1 L Lipase 9 L 01/13/20 01/13/20 01/13/20 08:56 12:09 17:17 WBC RBC Plt Count Lymph % (Auto) [place] # Seg Neutrophils % Seg Neuts % (Manual) Lymphocytes % (Manual) Seg Neutrophils # Seg Neutrophils # Man Lymphocytes # (Manual) ABG pH ABG pO2 ABG HCO3 ABG Base Excess VBG pH Oxyhemoglobin Potassium Chloride BUN Creatinine Glucose POC Glucose 225 H 164 H 301 H Phosphorus Magnesium Total Protein Albumin Lipase 01/13/20 01/14/20 01/14/20 20:49 05:39 05:39 WBC 14.3 H RBC 3.48 L Plt Count 489 H Lymph % (Auto) 11.1 L [place] # 0.9 H Seg Neutrophils % 81.8 H Seg Neuts % (Manual) Lymphocytes % (Manual) Seg Neutrophils # 11.7 H Seg Neutrophils # Man Lymphocytes # (Manual) ABG pH ABG pO2 ABG HCO3 ABG Base Excess VBG pH Oxyhemoglobin Potassium 3.3 L Chloride BUN 4 L Creatinine 0.5 L Glucose 168 H POC Glucose 325 H Phosphorus 2.30 L Magnesium 1.50 L Total Protein Albumin Lipase 01/14/20 07:34 WBC RBC Plt Count Lymph % (Auto) [place] # Seg Neutrophils % Seg Neuts % (Manual) Lymphocytes % (Manual) Seg Neutrophils # Seg Neutrophils # Man Lymphocytes # (Manual) ABG pH ABG pO2 ABG HCO3 ABG Base Excess VBG pH Oxyhemoglobin Potassium Chloride BUN Creatinine Glucose POC Glucose 135 H Phosphorus Magnesium Total Protein Albumin Lipase
[2020-01-14] MEDS ORDERED: hydroCHLOROthiazide 12.5 MG CAP PO SCH (10:00)
[2020-01-14] MEDS ORDERED: LORATADINE 10 MG PO SCH (10:00)
[2020-01-14] MEDS ORDERED: METOPROLOL TARTRATE 25 MG TAB PO SCH (10:00)
[2020-01-14] MEDS ORDERED: MAGNESIUM SULFATE 2 GM/50 ML BAG IV SCH (12:00)
[2020-01-14] MEDS: CETIRIZINE 10 MG TAB PO SCH (12:04)
[2020-01-14] MEDS: FAMOTIDINE 20 MG/2 ML INJ IV SCH ×2 (12:04→22:13)
[2020-01-14] MEDS: metFORMIN 500 MG TAB PO SCH ×2 (12:04→22:12)
[2020-01-14] MEDS: METOPROLOL TARTRATE 50 MG TAB PO SCH ×2 (12:05→22:12)
[2020-01-14] MEDS ORDERED: POTASSIUM PHOSPHATE 30 MMOL in SODIUM CHLORIDE 0.9% 500 ML 500 ML IV ONE (12:30)
--- NOTE | 2020-01-14 13:41 | Discharge Summary ---
Providers - Providers Date of Admission: 01/13/20 05:52 Attending physician: HENRY LANCE MD 01/13/20 13:02 Consult to Physician [CONS] Routine Comment: Consulting Provider: AVNI BERRIOS Physician Instructions: Reason For Exam: sob Primary care physician: [employer] Hospitalization Condition: Good Hospital course: 44-year-old male who presented to the hospital with viral type symptoms. Which included generalized weakness, muscle aches, cough which was nonproductive. Low-grade subjective fevers at home. The patient had extensive work-up in the hospital which included UA urine culture blood culture chest x-ray and rapid influenza. All were negative, the patient was found to be dehydrated, she received IV fluids and her electrolytes were repleted. Insulins are optimized Patient was reassured, preventative health counseling performed for 17 minutes. She was treated for vaginal candidiasis with antifungals Diagnosis Sepsis Upper respiratory tract infection likely due to viral illness Hypokalemia Hypomagnesemia Hypophosphatemia Dehydration Diabetes with persistent hyperglycemia Vaginal candidiasis Disposition: TO HOME OR SELFCARE Time spent for discharge: 35 minutes Core Measure Documentation - Palliative Care Palliative Care/ Comfort Measures: Not Applicable - Core Measures Any of the following diagnoses?: none Exam - Constitutional Vitals: Temp Pulse Resp BP Pulse Ox 98.3 F 92 H 22 130/74 94 01/14/20 11:13 01/14/20 12:05 01/14/20 11:13 01/14/20 12:05 01/14/20 11:13 General appearance: Present: no acute distress, well-nourished - EENT Eyes: Present: PERRL ENT: hearing intact, clear oral mucosa - Neck Neck: Present: supple, normal ROM - Respiratory Respiratory effort: normal Respiratory: bilateral: CTA - Cardiovascular Heart Sounds: Present: S1 & S2. Absent: rub, click - Extremities Extremities: pulses symmetrical, No edema Peripheral Pulses: within normal limits - Abdominal General gastrointestinal: Present: soft, non-tender, non-distended, normal bowel sounds Female genitourinary: Present: normal - Integumentary Integumentary: Present: clear, warm, dry - Musculoskeletal Musculoskeletal: gait normal, strength equal bilaterally - Psychiatric Psychiatric: appropriate mood/affect, intact judgment & insight - Neurologic Neurologic: CNII-XII intact, moves all extremities Plan Follow up with: PRIMARY CARE, [Primary Care Provider] - 3-5 Days Forms: Release Restrictions Prescriptions: Miconazole/Cleanser 17 On Wipe [Monistat 7 Combination Pack] 1 each VG HS #1 kit guaiFENesin [Robitussin] 200 mg PO Q4HR #240 ml Benzonatate [Tessalon Perles] 100 mg PO Q8HR #30 capsule
--- NOTE | 2020-01-14 18:48 | Ultrasound Report ---
LIMITED RUQ ABDOMINAL ULTRASOUND INDICATION: nausea vomiting abdominal pain. COMPARISON: CT abdomen/pelvis from yesterday. FINDINGS: Pancreas: Visualized portions show no significant abnormality. Abdominal Aorta: No significant abnormality. IVC: No significant abnormality. Liver: The liver measures 14.3 cm in length. 4.4 cm hyperechoic hemangioma in the left lobe of the l iver. Normal hepatopedal blood flow in the main portal vein. Gallbladder: No significant abnormality. Bile ducts: No significant abnormality. Common bile duct measures 2 mm. Right kidney: No significant abnormality visualized.. Free fluid: None. Additional Findings: None. IMPRESSION: 1. No acute abnormality. 2. Hepatic hemangioma.. Signer Name: Mars Tapia MD Signed: 01/14/2020 6:43 PM Workstation Name: [id number]
[2020-01-14] MEDS: INSULIN GLARGINE 100 UNITS/ML SUB-Q SCH (22:10)
[2020-01-14] MEDS: MONTELUKAST 10 MG TAB PO SCH (22:12)
[2020-01-15] MEDS: SODIUM CHLORIDE 0.9% 1000 ML 1,000 ML IV SCH (05:56)
[2020-01-15] MEDS: INSULIN LISPRO 100 UNIT/ML SUB-Q SCH ×4 (08:00→12:52)
[2020-01-15 08:27] VITALS: BP 147/88
[2020-01-15] MEDS: ALBUTEROL 2.5 MG/3 ML NEBU IH PRN (08:31)
[2020-01-15] MEDS: BUDESONIDE 0.5 MG/2 ML NEBU IH SCH (08:31)
[2020-01-15] MEDS: FAMOTIDINE 20 MG/2 ML INJ IV SCH (10:20)
[2020-01-15] MEDS: CETIRIZINE 10 MG TAB PO SCH (10:20)
[2020-01-15] MEDS: METOPROLOL TARTRATE 50 MG TAB PO SCH (10:20)
[2020-01-15] MEDS: metFORMIN 500 MG TAB PO SCH (10:45)
--- NOTE | 2020-01-15 10:52 | Progress Note ---
Assessment and Plan Dyspnea Bilateral lower lobe atelectasis h/o Mild intermittent asthma SIRS-Leukocytosis Nausea -vomiting Tachycardia DM II - continue to wean supplemental oxygen for O2 sats>90% - contyinue bronchodilators with pulmonary hygiene per RT - Her CT chest and CXR are unremarkable for a primary pulmonary process. - VTE prophylaxis - Gentle IV hydration - Accucheck with glycemic control - Anti-emetics with supportive care - Weight loss and life style modification on discharge - Airway clearance techniques- incentive spirometry ... re-evaluate in am & prn Subjective Date of service: 01/15/20 Principal diagnosis: Dyspnea; Jeremy lower lobe atelectasis; Asthma; SIRS; Leukocytosis; DM II Interval history: Patient is seen today for: Dyspnea; Bilateral lower lobe atelectasis; h/o Mild intermittent asthma; SIRS-Leukocytosis; Nausea -vomiting; Tachycardia; DM II Seen and examined at bedside; 24hour events reviewed; nursing and respiratory care staff consulted; no adverse overnight events reported to me; resting peacefully in bed; looks and feels better; denies acute chest pains or palpitations Objective Vital Signs - 12hr 01/14/20 01/15/20 01/15/20 23:57 02:59 04:15 Temperature 98.9 F 99.0 F Pulse Rate 98 H 91 H 99 H Pulse Rate [ Bilateral Throughout] Respiratory 20 20 Rate Respiratory Rate [Bilateral Throughout] Blood Pressure 109/72 117/74 Blood Pressure [Left] O2 Sat by Pulse 90 95 Oximetry 01/15/20 01/15/20 01/15/20 04:26 08:07 08:30 Temperature 99.0 F 98.8 F Pulse Rate 99 H 103 H Pulse Rate [ Bilateral Throughout] Respiratory 20 18 Rate Respiratory Rate [Bilateral Throughout] Blood Pressure 147/88 Blood Pressure 117/74 [Left] O2 Sat by Pulse 95 93 93 Oximetry 01/15/20 01/15/20 08:31 10:20 Temperature Pulse Rate 99 H Pulse Rate [ 107 H Bilateral Throughout] Respiratory Rate Respiratory 20 Rate [Bilateral Throughout] Blood Pressure 147/88 Blood Pressure [Left] O2 Sat by Pulse Oximetry Constitutional: no acute distress, appears uncomfortable, other (on supplemental oxygen at 2L/min) Eyes: non-icteric ENT: oropharynx moist Neck: supple, no lymphadenopathy, no JVD Effort: normal Ascultation: Bilateral: diminished breath sounds, rhonchi Cardiovascular: regular rate and rhythm, other (S1,S2) Gastrointestinal: normoactive bowel sounds, soft, non-tender Integumentary: normal Extremities: no cyanosis, no edema, pink and warm, no ischemia or petechiae Neurologic: normal mental status, non-focal exam, pupils equal and round, CN II- XII normal, motor strength normal and Psychiatric: mood appropriate, anxious CBC and BMP: 01/14/20 05:39 01/14/20 05:39 ABG, PT/INR, D-dimer: ABG ABG pH 7.488 pH Units (7.350-7.450) H 01/13/20 03:47 ABG pCO2 35.7 mm Hg 01/13/20 03:47 ABG pO2 74.3 mm Hg (80.0-90.0) L 01/13/20 03:47 ABG O2 Saturation 96.0 % (95.0-99.0) 01/13/20 03:47 Abnormal lab findings: Abnormal Labs 01/13/20 01/13/20 01/13/20 03:47 03:47 03:47 WBC 25.1 H RBC Plt Count 520 H Lymph % (Auto) [place] # Seg Neutrophils % Seg Neuts % (Manual) 94.0 H Lymphocytes % (Manual) 4.0 L Seg Neutrophils # Seg Neutrophils # Man 23.6 H Lymphocytes # (Manual) 1.0 L ABG pH 7.488 H ABG pO2 74.3 L ABG HCO3 26.5 H ABG Base Excess 3.3 H VBG pH 7.488 H Oxyhemoglobin 94.0 L Potassium 3.2 L Chloride 95.6 L BUN 6 L Creatinine 0.6 L Glucose 244 H POC Glucose Phosphorus Magnesium Total Protein 5.9 L Albumin 3.1 L Lipase 9 L 01/13/20 01/13/20 01/13/20 08:56 12:09 17:17 WBC RBC Plt Count Lymph % (Auto) [place] # Seg Neutrophils % Seg Neuts % (Manual) Lymphocytes % (Manual) Seg Neutrophils # Seg Neutrophils # Man Lymphocytes # (Manual) ABG pH ABG pO2 ABG HCO3 ABG Base Excess VBG pH Oxyhemoglobin Potassium Chloride BUN Creatinine Glucose POC Glucose 225 H 164 H 301 H Phosphorus Magnesium Total Protein Albumin Lipase 01/13/20 01/14/20 01/14/20 20:49 05:39 05:39 WBC 14.3 H RBC 3.48 L Plt Count 489 H Lymph % (Auto) 11.1 L [place] # 0.9 H Seg Neutrophils % 81.8 H Seg Neuts % (Manual) Lymphocytes % (Manual) Seg Neutrophils # 11.7 H Seg Neutrophils # Man Lymphocytes # (Manual) ABG pH ABG pO2 ABG HCO3 ABG Base Excess VBG pH Oxyhemoglobin Potassium 3.3 L Chloride BUN 4 L Creatinine 0.5 L Glucose 168 H POC Glucose 325 H Phosphorus 2.30 L Magnesium 1.50 L Total Protein Albumin Lipase 01/14/20 01/14/20 01/14/20 07:34 11:23 16:46 WBC RBC Plt Count Lymph % (Auto) [place] # Seg Neutrophils % Seg Neuts % (Manual) Lymphocytes % (Manual) Seg Neutrophils # Seg Neutrophils # Man Lymphocytes # (Manual) ABG pH ABG pO2 ABG HCO3 ABG Base Excess VBG pH Oxyhemoglobin Potassium Chloride BUN Creatinine Glucose POC Glucose 135 H 301 H 240 H Phosphorus Magnesium Total Protein Albumin Lipase 01/14/20 01/15/20 21:40 08:17 WBC RBC Plt Count Lymph % (Auto) [place] # Seg Neutrophils % Seg Neuts % (Manual) Lymphocytes % (Manual) Seg Neutrophils # Seg Neutrophils # Man Lymphocytes # (Manual) ABG pH ABG pO2 ABG HCO3 ABG Base Excess VBG pH Oxyhemoglobin Potassium Chloride BUN Creatinine Glucose POC Glucose 273 H 112 H Phosphorus Magnesium Total Protein Albumin Lipase Allied health notes reviewed: nursing
== END 2020-01-15 13:28 | disposition home or self-care (01) ==
LOC: SUATTDRO 02:20 → ED 02:20 → INTOOBSV 05:52 → 4A 05:52
PROVIDERS: ADMIT Internal Medicine Geriatric Medicine; ATTEND Internal Medicine
DX: D72.829 Elevated white blood cell count, unspecified (principal); R65.10 Systemic inflammatory response syndrome (SIRS) of non-infectious origin without acute organ dysfunction; R11.2 Nausea with vomiting, unspecified; R00.0 Tachycardia, unspecified; E11.9 Type 2 diabetes mellitus without complications; Z79.82 Long term (current) use of aspirin; Z79.4 Long term (current) use of insulin
CPT/HCPCS: 36415; 71046; 71260; 74177; 76705; 80048; 80053; 81001; 81025; 82140; 82803; 82805; 82962; 83690; 83735; 84100; 85007; 85025; 87040; 87086; 87400; 93005; 93010; 94010; 94640; 94760; 96361; 96365; 96366; 96367; 96372; 96375; 96376; 99285; G0378; J2543; J3475; J7030; J7040; Q9967; J1815